=== PATIENT | female | born 1950 | race Caucasian/White ===

== ENCOUNTER 2016-11-06 09:44 | Inpatient (IN) | payer OTHER, MEDICAID ==
[~2016-11-06] VITALS: Ht 162.6 cm; Wt 84.0 kg
[~2016-11-06 09:44] MED LIST: ACET1TAB PO; ASPI-628 PO; CHOL200020 PO; HYDR-4003 PO; IBUP400T22 PO; KTC2C15 TP; METO25TA6 PO; OMEG1CAP5 PO; RANI150T13 PO; ROSU40TA PO
--- NOTE | 2016-11-06 09:51 | ED.REPORT ---
HPI-General Illness Date of Service November 06, 2016 ED Provider: Trent Fan MD Pt is a 66 y.o. female with a hx of HTN and peptic ulcer disease who presents to the ED c/o nausea, vomiting, and diarrhea. She states that she has diarrhea "every day, all day long" and cannot provide a number of episodes. Pt also reports associated upper abdominal pain/epigastric pain rated at an 8/10 that is burning in nature. She denies hematochezia and hematemesis. She states she was seen at yesterday and given Zofran which provided her no relief. Pt states that a close friend had similar sx recently. Pt also reports use of Azithromycin 2 weeks ago for a "cold". She denies a hx of Crohn's and IBD. She denies any history of C. difficile. She reports that her vomiting has resolved but she continues to be nauseated and have nonbloody diarrhea. She is here hoping to get symptom control. Nursing Notes Stated Complaint: NAUSEA/DIARRHEA Nursing Notes Reviewed: Yes Allergies: Coded Allergies: tramadol (Verified Allergy, Intermediate, hallucinations, 08/29/14) codeine (Verified Adverse Reaction, Intermediate, Sweats; N/V, 08/29/14) Uncoded Allergies: statins (Adverse Reaction, Mild, stiff joints, 08/29/14) Scheduled Aspirin (Aspirin) 81 Mg Tablet 81 MG PO DAILY Cholecalciferol (Vitamin D3) (Vitamin D3) 2,000 Unit Tablet 2,000 UNIT PO DAILY Clopidogrel (Clopidogrel) 75 Mg Tablet 75 MG PO DAILY Ketoconazole (Ketoconazole) 15 Gm Cream..g. 2 % TP DAILY Lisinopril (Lisinopril) 20 Mg Tablet 20 MG PO DAILY Loperamide (Loperamide) 2 Mg Capsule 2 MG PO Q4H Metoprolol Tartrate (Metoprolol Tartrate) 25 Mg Tablet 25 MG PO BID [place]-3 Fatty Acids (Fish Oil Concentrate) 1,000 Mg Capsule 1,000 MG PO DAILY Ranitidine (Ranitidine) 150 Mg Capsule 150 MG PO BID Rosuvastatin Calcium (Crestor) 40 Mg Tablet 40 MG PO DAILY Scheduled PRN Hydrocodone-Acetaminophen 5-325 mg (Hydrocodone-Acetaminophen 5-325 mg) 1 Each Tablet 1 EACH PO Q6 PRN PRN For Pain Ondansetron ODT (Zofran ODT) 4 Mg Tablet 4 MG PO Q4H PRN PRN For Nausea General Time Seen by MD: 09:51 Chief Complaint Diarrhea, Vomiting Arrived By: Walk-in Onset Occurred: 4 days ago Context of Onset: Recent antibiotic use Symptom Duration: Since onset Location: : Abdomen Quality: Painful Severity: Current: Pain level 8 out of 10 Past Medical History Past Medical History Peptic ulcers Reports: Hypertension Smoking History Former Smoker Review of Systems Full Review of Systems GI: Reports: Abdominal pain, Diarrhea, Nausea, Vomiting, Denies: Constipation, Hematemesis, Hematochezia Complete sys rev & neg: except as marked. Physical Exam Vital Signs Vital Signs Date Time Temp Pulse Resp B/P Pulse Ox O2 Delivery O2 Flow Rate FiO2 11/06/16 11:22 79 16 125/62 98 Room Air 11/06/16 09:52 36.9 93 16 115/72 98 Room Air Initial VS: Reviewed Extremities: Vascular intact, Neuro intact Skin: Warm, Dry, No cyanosis Neurologic: Alert, Oriented, Nonfocal Psychiatric: Mood/affect normal, Behavior normal, Normal thought content General/Constitutional: Awake, Alert, Well appearing, Well developed, Well nourished, Not toxic appearing Head / Eyes: Atraumatic, Normocephalic, PERRL, EOMI ENT: Atraumatic Mouth: Positive: Mucous membranes dry Respiratory / Chest: Atraumatic, Breath sounds NL, Breath sounds = bilat, No respiratory distress Cardiovascular: Heart rate NL, Regular rhythm, Heart sounds NL, Peripheral circulation NL Abdomen: Atraumatic, Soft, Non-tender, No guarding, No rebound, No distention Interpretation & Diagnostics Lab Results Interpretation Result Diagram: 11/06/16 1000 11/06/16 1000 Test 11/06/16 10:00 White Blood Count 8.5th/mm3 (3.8-10.1) Red Blood Count 5.33mil/mm3 (3.90-5.20) Hemoglobin 15.8g/dL (12.0-15.6) Hematocrit 46.1% (35.0-46.0) Mean Corpuscular Volume 86.5fL (81-100) Mean Corpuscular Hemoglobin 29.6pg (27.0-35.0) Mean Corpuscular Hemoglobin Concent 34.3% (32.0-37.0) Red Cell Distribution Width 15.2% (12.3-15.4) Platelet Count 238bil/L (150-400) Neutrophils (%) (Auto) 75.5% (40-74) Lymphocytes (%) (Auto) 13.8% (14-46) Monocytes (%) (Auto) 9.8% (4-12) Eosinophils (%) (Auto) 0.5% (0-5) Basophils (%) (Auto) 0.2% (0-3) Sodium Level 128mEq/L (134-144) Potassium Level 4.7mEq/L (3.5-5.2) Chloride Level 89mEq/L (97-108) Carbon Dioxide Level 13mmol/L (18-29) Blood Urea Nitrogen 87mg/dL (8-27) Creatinine 7.66mg/dL (0.57-1.00) Estimat Glomerular Filtration Rate 8mL/min (>59) Glucose Level 101mg/dL (60-99) Calcium Level 8.9mg/dL (8.5-10.1) Total Bilirubin 0.4mg/dL (0.0-1.2) Aspartate Amino Transf (AST/SGOT) 36U/L (0-50) Alanine Aminotransferase (ALT/SGPT) 27U/L (0-32) Alkaline Phosphatase 96U/L (25-165) Total Protein 8.2g/dL (6.4-8.4) Albumin 4.0g/dL (3.4-5.0) Hold Torres Top Tube Received (Received) CBC Interpretation WBC normal BMP / CMP Interpretation Na low, K+ normal, BUN elevated, Creatinine elevated Re-Eval/Medical Decision Med Decision/Clinical Course Pt is a 66 y.o. female with a hx of HTN and peptic ulcer disease who presents to the ED c/o nausea, vomiting, and diarrhea. She states that she has diarrhea "every day, all day long" and cannot provide a number of episodes. Pt also reports associated upper abdominal pain/epigastric pain rated at an 8/10 that is burning in nature. She denies hematochezia and hematemesis. She states she was seen at yesterday and given Zofran which provided her no relief. Pt states that a close friend had similar sx recently. Pt also reports use of Azithromycin 2 weeks ago for a "cold". She denies a hx of Crohn's and IBD. She denies any history of C. difficile. She reports that her vomiting has resolved but she continues to be nauseated and have nonbloody diarrhea. She is here hoping to get symptom control. Here in the emergency department the patient is afebrile with stable vital signs and examination as above. She appears quite dehydrated though her abdominal examination is benign. In the emergency department she was treated with IV fluids, Zofran for nausea and a GI cocktail. She reported feeling better though had ongoing nausea which was treated with IV Reglan. She reported dramatic improvement in her symptoms. Thereafter, she was able to tolerate PO fluids. My suspicion for C. difficile colitis is relatively low though she has recently been on antibiotics. I ordered a C. difficile PCR however she did not have any bowel movements here in the emergency department. At this time, overall presentation and history not suggestive of acute bacterial process. Inflammatory bowel disease seems inconsistent with the overall clinical picture of vomiting/diarrhea after being in contact with a friend who had similar symptoms. No findings suggestive of acute surgical intra-abdominal process. Patient has known gastritis/peptic ulcer disease and has been advised to continue to take her PPI. At this time, I do not feel that abdominal imaging studies are indicated at this moment. Laboratory studies were notable as below: CBC with no leukocytosis. New onset acute renal failure with BUN of 87 and creatinine of 7.66 up from previous near 1 Hyponatremic with sodium of 128 Potassium is within normal limits at 4.7 My initial plan was for outpatient management however this patient is surprisingly noted to be in acute renal failure with dramatic increase of her BUN and creatinine from baseline. This may all be secondary to severe dehydration and the acute rise in her renal function testing is dramatic and warrants admission for ongoing IV fluids, serial kidney function testing and likely evaluation by nephrology, especially if she does not have dramatic improvement in her renal function testing. Patient was discussed with admitting hospitalist accepted for further management. Source of Hx: Old records Time of Eval: 10:34 Re-Evaluation/Progress Note: Pt nausea has improved with IV Zofran. Time of Eval: 11:10 Re-Evaluation/Progress Note: Pt rechecked. Discussed lab results and need for admit, pt understands and agrees with plan. Consultation : Referral / Consult Name: Fernie Krueger MD Consulted With: Hospitalist Call Returned at: 12:12 [place] Worker: Accepts admit Note: Discussed pt condition. Accepts admit. Counseled Regarding: Diagnosis, Lab results, Need for follow-up, When/why to return to ED Discharge & Departure Primary Impression: Gastroenteritis Additional Impressions: Dehydration Acute renal failure Acute renal failure type: unspecified Qualified Code: N17.9 - Acute kidney failure, unspecified Nausea vomiting and diarrhea Hyponatremia Peptic ulcer disease Epigastric pain Disposition: ADMITTED TO HOSPITAL Discharge Condition All VS Reviewed: Yes Condition: Improved Patient Instructions: Gastroenteritis (ED) Additional Instructions: Thank you for seeking care at the emergency room. It is difficult for us to make definitive diagnoses in the ED but we believe that you are experiencing gastroenteritis. Our primary goal today in the ED was to evaluate you for any life-threatening conditions. Your evaluation was reassuring. You will be discharged with a prescription for apparent need for diarrhea and Zofran for nausea. You should follow-up with your primary doctor in the next week. We would like to get a stool sample to rule out C. difficile. You will be sent home with a stool collection container, please bring back to your primary care physician if you continue to have diarrhea. You should return to the ED immediately if you develop worsening symptoms, bloody vomiting/diarrhea, fevers, abdominal pain, cough, shortness of breath, chest pain, lightheadedness, weakness or any other concerning signs or symptoms. Thank you for letting us partake in your care today. Referrals: Cherie Arreola PA-C (PCP) Crit Care Except Billable Proc Time Spent: 105-134 minutes Services Performed: Patient management by me, Time spent at bedside, Reviewing test results, Reviewing imaging, Discussing patient care, Documentation in record, Time with fam/surrogate Scribe Attestation Portions of this note were transcribed by Raheem Kern. I, Dr. Fan personally performed the history, physical exam and medical decision-making; I reviewed and confirmed the accuracy of the information in the transcribed note. Signed by: Trevor Singh, 11/06/16 and 1213 copies to: Cherie Arreola PA-C, Beck O MD November 06, 2016 09:51 RAHEEM KERN November 06, 2016 09:58
[2016-11-06 09:52] VITALS: BP 115/72; PULSE 93; RESP 16; O2SAT 98
[2016-11-06] MEDS ORDERED: 0.9% Sodium Chloride 1,000 ML IV ONE ×2 (09:56→11:10)
[2016-11-06] MEDS ORDERED: Ondansetron 2 mg/mL 2 mL Inj IVPUSH ONE (10:00)
[2016-11-06] MEDS ORDERED: ONDA4TAB9 PO (10:01)
[2016-11-06] MEDS ORDERED: LOPE2CAP PO (10:01)
[2016-11-06 10:15] LABS: BASOPHILS % (AUTO) 0.2 % (0-3); EOSINOPHILS % (AUTO) 0.5 % (0-5); MONOCYTES % (AUTO) 9.8 % (4-12); Mean Corpuscular Hemoglobin 29.6 pg (27.0-35.0); Mean Corpuscular Volume 86.5 fL (81-100); NEUTROPHILS % (AUTO) 75.5 % (40-74); Platelet Count 238 bil/L (150-400)
[2016-11-06] MEDS: MetoCLOpramide 5 mg/mL 2 mL Inj IVPUSH PRN ×2 (10:40→16:18)
[2016-11-06] MEDS ORDERED: Ondansetron 2 mg/mL 2 mL Inj IVPUSH PRN ×2 (11:10→13:40)
[2016-11-06] MEDS ORDERED: Alum-Mag Hydrox-Simeth 30 mL Suspension PO PRN ×2 (11:10→13:40)
[2016-11-06 11:22] VITALS: BP 125/62; PULSE 79; RESP 16; O2SAT 98
[2016-11-06] MEDS ORDERED: CLOP75TA28 PO (11:27)
[2016-11-06] MEDS ORDERED: LISI-567 PO (11:27)
[2016-11-06] MEDS ORDERED: ASPI-973 PO (11:28)
[2016-11-06] MEDS ORDERED: CHOL200025 PO (11:28)
[2016-11-06] MEDS ORDERED: RANI150C4 PO (11:29)
[2016-11-06] MEDS ORDERED: OMEG1000 PO (11:29)
[2016-11-06 12:50] VITALS: BP 137/78; PULSE 75; RESP 16; O2SAT 99
--- NOTE | 2016-11-06 13:00 | NUR ---
Admit Rm [id number] from ED A&O pt, admitted to [facility] at 1247 via wc. Pt denies pain, N/V/D & Dizziness, c/o weakness. IV patent. VSS. to yet see pt. Admit done in ED. Pt oriented to room and facility, denies having questions. No personal items on self except for clothing-brought to ED by . Bed in low position, upper 2 rails up, call light in reach. Will continue to monitor.
[2016-11-06] MEDS ORDERED: Polyethylene Glycol (PEG) 17 Gm Powder PO PRN (13:40)
[2016-11-06] MEDS ORDERED: _Ondansetron ODT 4 mg Tablet PO PRN (13:50)
[2016-11-06 14:02] LABS: APPEARANCE,URINE CLEAR (CLEAR,HAZY); COLOR,URINE YELLOW (YELLOW)
[2016-11-06 14:03] LABS: OCCULT BLOOD,URINE TRACE (NEGATIVE); UROBILINOGEN,URINE NORMAL (NORMAL)
[2016-11-06] MEDS ORDERED: HYDROcodone-APAP 5-325 mg Tablet PO PRN (14:10)
[2016-11-06] MEDS: 0.9% Sodium Chloride 1,000 ML IV SCH ×2 (14:24→21:52)
--- NOTE | 2016-11-06 15:28 | HP ---
[address] [address] HISTORY AND PHYSICAL PATIENT: JADE MIRANDA : 1950 MR#: [id number] ADMIT: 11/06/2016 JOB ID: [id number] DATE OF SERVICE: 11/06/2016 This is a 66-year-old female presenting with intractable nausea, vomiting, and diarrhea, who is found to be in acute renal failure. She describes taking a course of Zithromax for her yearly cold infection about two weeks ago. She is not clear when she finished it. The vomiting and the diarrhea started about four days ago and seems to be infectious in origin, as she was exposed to a friend with similar symptoms. She went to the [facility] urgent care yesterday and was given Zofran which she says did not help but was told at that time that if she remained this ill she come to the emergency department and so she came in today. She has no history of kidney problems but she is a vasculopath with significant lower extremity claudication procedures for peripheral arterial disease. All members of her immediate family have coronary artery disease and peripheral arterial disease but none have had strokes. Her most recent stenting was two years ago with Dr. Brunson here [facility]. At that time, August 30, 2014, her BUN is 14, and creatinine was 1.03. She is not reporting any recent nonsteroidal anti-inflammatory drug use or other classic renal toxic agents. She does take lisinopril and aspirin 81 mg a day. There has been no change in her urinary function. She has no history of diabetes. At baseline, she is quite immobilized by her claudication despite the stents in the past. She was able to stop smoking 4-1/2 years ago. REVIEW OF SYSTEMS: Positive for bilateral lateral lower extremity claudication with ambulation, vomiting, diarrhea, and weakness. Negative for fevers, chills, sweating, abdominal pain, chest pain, shortness of breath, joint pain, rashes, seizures, headaches, depression, new allergies, sore throat. PAST MEDICAL HISTORY: Denies any history of kidney problems. 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 SOCIAL HISTORY: No smoking for 4-12 years. No alcohol. No marijuana or drugs. She lives with her . Her physician is nurse practitioner, Kathy Antunez. She is disabled/retired by her claudication symptoms. MEDICINES: 1. Plavix 75 mg a day. 2. Hydrocodone p.r.n. 3. Ranitidine 150 mg twice a day. 4. Crestor 40 mg a day. 5. Metoprolol tartrate 25 mg b.i.d. 6. Aspirin 81 mg a day. 7. Lisinopril 10 mg a day. ALLERGIES: 1. CODEINE. 2. STATINS. 3. TRAMADOL. FAMILY HISTORY: Coronary artery disease and peripheral arterial disease but without stroke in all of her immediate family members. PHYSICAL EXAM: General: Alert and oriented, no apparent distress. Vital signs: Temperature is 36.3, pulse 66, respirations 20, blood pressure 179/88. O2 sat is 96% on room air. Pupils are equally round and reactive to light and accommodation. Extraocular muscles are intact. Sclerae are pink and not icteric. Throat looks normal. No lymph nodes are palpated in the neck/supraclavicular area. There is no thyromegaly. JVD is less than 6 cm. No carotid bruits are heard. Heart: Regular rate and rhythm. No murmur. Lungs are clear to auscultation bilaterally. Abdomen is soft. Bowel sounds positive. Nontender. No organomegaly. Obese. Extremities: No ankle edema. She does have warm feet but no palpable DP pulses. Neuro: Cranial nerves 2-12 tested intact. Motor is 5/5 throughout. There is no tremor. Skin: No rash or jaundice. LABORATORY TESTING: White count 8.5, hemoglobin 15.8, platelets 238. Sodium 128, potassium 4.7, chloride 89, CO2 is 13. BUN 87, creatinine 7.66. Glucose 101. ASSESSMENT AND PLAN: 1. Acute renal failure with several possible causes including occult NSAID use, recent antibiotic exposure, recent dehydration from vomiting and diarrhea. Nephrology has been consulted. The patient is receiving IV fluids at 150 mL an hour of normal saline. Renal ultrasound and urinary eosinophils have been ordered. Labs will be followed closely. 2. Gastroenteritis symptoms. This is being supported with antiemetics and IV fluids. 3. History of peptic ulcer disease. Continue Pepcid. 4. Peripheral arterial disease. Continue Plavix and aspirin. Unfortunately she is intolerant of statins. 5. Hypertension. Holding lisinopril in the context of acute renal failure and establishing blood pressure control per Nephrology consultation to follow. The plan is discussed and explained to the patient. CC: SHERYL Gonzales. Sebas Krueger MD [facility]
[2016-11-06] MEDS: Omega-3 Fatty Acids 1,000 mg Capsule PO SCH (16:16)
[2016-11-06] MEDS: Heparin 5,000 Unit/mL Inj SUBQ SCH (16:19)
[2016-11-06 17:42] VITALS: BP 143/80; PULSE 79; RESP 18; O2SAT 98
--- NOTE | 2016-11-06 18:59 | DRSVH ---
CORRECTED ACCESSION/PLACER NUMBER ON 11/11/16 PROCEDURE: US RENAL SONOGRAM INDICATIONS: Acute Renal Failure TECHNIQUE: Real-time scanning was performed of the kidneys and bladder, with image documentation. COMPARISON: None. FINDINGS: Kidneys: Kidneys are normal in size. Right kidney measures 11.1 cm long; left kidney measures 10.9 cm long. Right renal cortical thickness is 1.0 cm; left renal cortical thickness is 1.1 cm. Renal c ortical echotexture is normal. No hydronephrosis or nephrolithiasis. No suspicious solid mass lesio ns. Bladder: Pre-void bladder volume is 20 mL. Pre-void images demonstrate no intraluminal masses or st ones. On pre-void images, no ureteral jets are noted with color Doppler interrogation. (Of note, ur eteral jets may not be detectable in up to 25% of cases due to insufficient differences in specific g ravity between ureteral and bladder urine). Miscellaneous: No free pelvic fluid. IMPRESSION: No hydronephrosis. Dictated by: Jolie Sharma M.D. on 11/06/2016 at 18:56 Approved by: Jolie Sharma M.D. on 11/06/2016 at 18:57
--- NOTE | 2016-11-06 21:02 | NUR ---
Activity Pt alert and oriented x4, cooperative and pleasant. Family visiting for the evening, no complaints of nausea or vomiting, continued diarrhea. Says she feels better than yesterday. No complaints of pain or discomfort, will continue to monitor.
[2016-11-06 21:22] VITALS: BP 129/77; PULSE 71; RESP 18; O2SAT 92
[2016-11-07] MEDS: Heparin 5,000 Unit/mL Inj SUBQ SCH ×3 (00:33→16:28)
[2016-11-07] MEDS: 0.9% Sodium Chloride 1,000 ML IV SCH ×3 (04:57→19:25)
--- NOTE | 2016-11-07 05:37 | NUR ---
Uneventful night Patient has remained alert and oriented, steady gait and independent in room. Vital signs stable. One loose bowel movement- stool sample sent. Enteric precautions for pending stool samples. Denies pain and nausea. IV fluids infusing per orders. Call light within reach, intentional rounding in place.
[2016-11-07 06:09] VITALS: BP 136/74; PULSE 68; RESP 18; O2SAT 96
[2016-11-07] MEDS: Omega-3 Fatty Acids 1,000 mg Capsule PO SCH (08:44)
--- NOTE | 2016-11-07 08:54 | NUR ---
Social Work: Screening Data: Pt is a 66 y/o female admitted for ARF, N/V/D. Pt's PCP is dr Arreola, pt's insurance is [facility] Blind/disabled. EMR reviewed. No d/c planning needs anticipated at this time. PHYSICAL THERAPY AIDES TEACHER will continue to follow for possible d/c needs. Assessment: Pt who is independent at baseline. Plan: Pt will d/c home via POV when medically stale. No d/c planning needs anticipated at this time. PHYSICAL THERAPY AIDES TEACHER will continue to follow for possible d/c needs. TAMMY Renner
[2016-11-07] MEDS ORDERED: ROSU10TA24 PO (10:02)
--- NOTE | 2016-11-07 10:05 | NUR ---
Carolyn Pt. reported home med Crestor 10 mg HS (Not 40 mg due to muscular pain). Primary nurse, Danyelle Tineo RN will notify attending doctor about the discrepancy.
[2016-11-07 10:08] VITALS: BP 135/73; PULSE 71; RESP 16; O2SAT 95
--- NOTE | 2016-11-07 13:10 | PCM.PNMED ---
Subjective Date of Service November 07, 2016 Subjective She is seen today in her room to follow-up the rotavirus gastroenteritis and the acute renal failure. The renal ultrasound report is still pending but the initial statement by the technologist was that it was apparently normal. The BUN and creatinine have improved dramatically overnight with IV fluids. I have spoken with nephrology, Dr. Latham who saw her today. She says she feels a lot , a lot better. Exam Vital Signs Vital Sign - Last Date Time Temp Pulse Resp B/P Pulse Ox O2 Delivery O2 Flow Rate FiO2 11/07/16 10:08 36.6 71 16 135/73 95 Room Air Intake and Output 11/06/16 11/06/16 11/07/16 Cumulative From/Thru 15:00 23:00 07:00 11/06/16 09:52 - 11/07/16 06:25 Intake Total 2000 ml 680 ml 1892 ml 4572 ml Output Total 570 ml 1600 ml 2170 ml Balance 2000 ml 110 ml 292 ml 2402 ml Intake Oral 300 ml 300 ml 600 ml IV Total 2000 ml 380 ml 1592 ml 3972 ml Output Urine Total 570 ml 1600 ml 2170 ml # Bowel Movements 1 1 Exam Heart is regular rate and rhythm without murmur Lungs are clear to auscultation bilaterally Extremities have no ankle edema Abdomen is soft, nontender, no organomegaly, bowel sounds are heard. Lab and Diagnostics Result Diagram: 11/06/16 1000 11/07/16 0720 Assessment & Plan Acute Renal Failure - Secondary to Rotavirus Gastroenteritis Dehydration - Resolving with IVF replacement - Seen by Nephrology - US of kidneys done and report is pending, although presumably normal - Dr. Latham suspects CKD due to PAD/HTN is also present. - Baseline Creatinine 1 in 2014 Rotavirus GE/Dehydration - Continue IVF support - Diarrhea and Vomiting resolved PAD - Continue Plavix and Aspirin HTN - Continue home medicines of Metoprolol. - Hold Lisinopril until renal function is normal. HLD - Continue Crestor at 10 mg Disposition: Home tomorrow if renal function normalizes as expected. Sebas Krueger MD Pain Evaluation: Adequate Pain Control GI Prophylaxis: H2 nura VTE Mechanical Devices: Venous Foot Pump Resuscitation Status: CPR: Attempt Resuscitation Fernie Krueger MD November 07, 2016 10:37
[2016-11-07 13:38] VITALS: BP 154/75; PULSE 70; RESP 18; O2SAT 96
--- NOTE | 2016-11-07 13:58 | NUR ---
Anxious to d/c Pt states to be feeling much better today. Denies pain. is anxious to go home. Tolerating IVF well.
--- NOTE | 2016-11-07 16:27 | CONS ---
[address] [address] CONSULTATION REPORT PATIENT: JADE MIRANDA : 1950 MR#: [id number] ADMIT: 11/06/2016 JOB ID: [id number] DATE OF SERVICE: HISTORY: The patient is a very pleasant, 66-year-old, white female, who was admitted to [facility] for severe dehydration, diarrhea, and acute kidney injury. Renal consultation is being sought for further evaluation of her acute kidney injury. The patient states that several weeks ago, she started having symptoms of an upper respiratory tract infection including nasal congestion, cough productive of mucopurulent sputum, sore throat, and general malaise. She was seen by her family physician and was given a Z-Toby which improved her symptomatology. About a week following the completion of the medication, she began to develop nausea, vomiting, and diarrhea. This has persisted for five days up until time of admission. She also states she has been quite weak, unsteady on her feet, and has had some anorexia. She was seen in the emergency department, and at that time yesterday morning her BUN and creatinine were 87 and 7.66. She was subsequently admitted and was started on IV fluids. Also, at time of admission, she had a systolic blood pressure of about 90. This is both her renal function and her blood pressure has improved with IV hydration. She denies a history of any prior renal problems. Reviewing previous records from 2014, at that time her creatinine was 1.0. She denies a history of any prior renal problems. There is no history of any prior hematuria, proteinuria, recurrent urinary tract infections, renal lithiasis, frequent use of nonsteroidal anti-inflammatories, difficulty with urination, prior history of diabetes, hepatitis, rheumatoid arthritis, or lupus. She does have approximately a nine-year history of well-controlled hypertension on medications. There is also a history of peripheral vascular disease and she has a history of intermittent claudication from this. Otherwise, she denies any severe headache, visual problems, cough, wheezing, chest pain, shortness of breath, lower extremity edema, significant change in weight, fever, or chills. She denies any rash, hematemesis, melena, or hematochezia. PAST MEDICAL HISTORY: Significant for hypertension and intermittent claudication. She denies a history of any prior stroke, seizure, asthma, emphysema, tuberculosis, coronary artery disease, congestive heart failure, peptic ulcer disease, cancer, or thyroid illness. PAST SURGICAL HISTORY: Remarkable for a balloon angioplasty to her femoral vessels, which was not successful. ALLERGIES: She is allergic to: 1. CODEINE. 2. STATINS. 3. TRAMADOL. SOCIAL HISTORY: She has an extensive history of tobacco use but states that she quit smoking about five years ago. There is no history of any alcohol use or illicit drug use. She is normally active in her activities of daily living which she normally performs without problems or restriction. MEDICATIONS: At time of admission include Plavix, hydrocodone, ranitidine, Crestor, metoprolol, aspirin, and lisinopril. FAMILY HISTORY: Remarkable for severe peripheral vascular disease. REVIEW OF SYSTEMS: As detailed above. Otherwise is noncontributory. PHYSICAL EXAMINATION: Revealed a mildly obese, 66-year-old, white female, who was alert and oriented x3, in no distress at time of my evaluation. Her blood pressure is 135/73, with a pulse rate of 70. HEENT: Examination is remarkable for mildly pale sclerae. Cornea, conjunctiva, pupils, and extraocular muscles were unremarkable. Mucous membranes were somewhat dry. Neck is supple without adenopathy, thyromegaly, or jugular venous distention. Lungs are clear to auscultation. Heart is regular and rhythmical with a soft systolic murmur. Abdomen is soft, without any tenderness, rebound, guarding, masses or hepatosplenomegaly. Extremities did not show any evidence of any clubbing, cyanosis, or edema. There are sayw-wqe-gegw nails noted. Skin turgor is diminished and there is no evidence of any rashes. LABORATORY EXAMINATION: This morning, her sodium is 139, potassium 4.5, chloride 109, bicarbonate 14. BUN and creatinine were 56 and 2.87, with a calcium of 7.6. Liver function studies are unremarkable. Urinalysis on admission showed a specific gravity 1.010. PH was five. Tests for occult blood were trace, otherwise were unremarkable. Urine free eosinophils was also negative. Her white count was 8.5, hemoglobin 15.8, hematocrit 46.1. Red cell indices, platelet count and differential were normal. IMPRESSION: 1. Severe dehydration from vomiting and diarrhea. 2. Acute kidney injury secondary to number one. 3. Metabolic acidosis. 4. Baseline chronic kidney disease at an unknown stage. RECOMMENDATION: I would like to obtain a renal ultrasound along with continuing her IV hydration and her serial lab exam. Once again, I would like to thank you for allowing me to participate in the care of this most pleasant and interesting patient. I will be following her closely with you.
[2016-11-07 20:00] VITALS: BP 134/66; PULSE 73; RESP 18; O2SAT 96
[2016-11-08] MEDS: Heparin 5,000 Unit/mL Inj SUBQ SCH ×2 (00:33→07:56)
[2016-11-08] MEDS: 0.9% Sodium Chloride 1,000 ML IV SCH ×2 (02:22→09:09)
[2016-11-08 05:11] VITALS: BP 154/76; PULSE 71; RESP 18; O2SAT 97
--- NOTE | 2016-11-08 05:12 | NUR ---
Uneventful night PT slept well all night no complaints of pain, SOB or diarrhea, spent the night on the pull out bed.
[2016-11-08] MEDS: Omega-3 Fatty Acids 1,000 mg Capsule PO SCH (07:55)
--- NOTE | 2016-11-08 10:54 | PCM.PNNEPH ---
Subjective Date of Service November 08, 2016 Subjective Patient continues to do well. Her BUN and creatinine are back to near baseline and she is tolerating her diet. She denies any headache, chest pain, shortness of breath, vomiting or diarrhea. Her blood pressures average in the 1:30 to 150 range. Over the last 24 hour she has had 5040 5 AM and 2650 out with the thousand in urine output already today. Sodium is 144, potassium 4.5, chloride 114, bicarbonate 19, BUN and creatinine were 21.28. Exam Vital Signs Vital Sign - Last Date Time Temp Pulse Resp B/P Pulse Ox O2 Delivery O2 Flow Rate FiO2 11/08/16 05:11 36.7 71 18 154/76 97 Room Air Intake and Output 11/07/16 11/07/16 11/08/16 Cumulative From/Thru 15:00 23:00 07:00 11/06/16 09:52 - 11/08/16 06:26 Intake Total 3153 ml 2180 ml 9905 ml Output Total 1050 ml 1000 ml 4220 ml Balance 2103 ml 1180 ml 5685 ml Intake Oral 1200 ml 550 ml 2350 ml IV Total 1953 ml 1630 ml 7555 ml Output Urine Total 1050 ml 1000 ml 4220 ml # Bowel Movements 0 1 Exam Neck is supple without adenopathy, thyromegaly, jugular venous distention. Lungs were clear to auscultation. Heart was regular with a soft systolic murmur. Abdomen is soft without any tenderness or rebound guarding masses or hepatosplenomegaly. She is actually evidence of any clubbing, cyanosis, or edema. Skin turgor is good. Lab and Diagnostics Result Diagram: 11/06/16 1000 11/08/16 0605 Plan Impression Impression #1 acute kidney injury which is resolving secondary to all vomiting and diarrhea #2 dehydration which is resolved #3 hypertension with hypertensive heart disease and hypertensive nephrosclerosis. Recommendations #1 I would recommend adding labetalol 100 mg twice a day to her current blood pressure regime and my point she can be discharged today. I would like to see her in the office in about a month. Savage Latham DO November 08, 2016 10:54
--- NOTE | 2016-11-08 11:22 | PCM.DIMED ---
Discharge Instructions Date of Service November 08, 2016 Dates of Hospitalization November 06, 2016 at 11:29 Discharge Diagnosis Discharge Diagnosis Rotavirus gastroenteritis Acute renal failure due to volume depletion Diet Discharge Diet: Heart Healthy Activity Discharge Activity: No restrictions Patient Instructions Follow-up with PCP in: 1 week Provider: Savage Latham DO Follow-up in: 4 weeks Karrie Pandya MD November 08, 2016 11:22
--- NOTE | 2016-11-08 11:28 | NUR ---
Social Work-discharge: Data:EMR Reviewed. Pt is on day 2 of hospitalization for ARF per H&P. Pt is medically stable for discharge. Per RN notes, pt has been up independent in her room. Pt's family to provide transport home today. No discharge needs identified. All updated and agreeable to plan. Assessment:Pt who is independent at baseline. Plan:Pt to discharge home today via POV. No discharge needs identified. All updated and agreeable to plan. TAMMY Jones
[2016-11-08] MEDS ORDERED: LISI-567 PO (11:33)
--- NOTE | 2016-11-08 11:37 | PCM.DC.MED ---
Discharge Summary Date of Service November 08, 2016 Dates of Hospitalization Date of Hospital Admission November 06, 2016 at 11:29 Date of Discharge: November 08, 2016 Providers: Admitting Physician: Fernie Krueger MD Primary Care Physician: Cherie Arreola PA-C Attending Physician: Fernie Krueger MD Diagnosis at Time of Discharge Diagnosis at Time of Discharge Rotavirus gastroenteritis Acute renal failure due to volume depletion Hospital Course Acute Renal Failure - Secondary to Rotavirus Gastroenteritis Dehydration - Resolved quickly with IVF replacement - Seen by Nephrology - US of kidneys done and report is pending, although presumably normal - Dr. Latham suspects CKD due to PAD/HTN is also present. - Baseline Creatinine 1.03 in 2014, down to 1.28 at the time of discharge Rotavirus GE/Dehydration - Diarrhea and Vomiting resolved PAD - Continue Plavix and Aspirin HTN - Continue home medicines of Metoprolol. Dr. Latham's note mentioned beginning labetalol but discussed home med of metoprolol with him and that he advised she should just continue the metoprolol - Held Lisinopril until renal function normalized, okay to resume at discharge per Dr. Latham HLD - Continue Crestor at 10 mg Disposition: Home Exam Vital Signs (Last) Date Time Temp Pulse Resp B/P Pulse Ox O2 Delivery O2 Flow Rate FiO2 11/08/16 05:11 36.7 71 18 154/76 97 Room Air Exam General: Alert and oriented, no acute distress, feels back to usual self and anxious to be discharged home Heart: Regular Lungs: Clear Abdomen: Soft, non-tender Extremities: No pedal edema Test 11/06/16 10:00 11/06/16 13:31 11/08/16 06:05 White Blood Count 8.5th/mm3 (3.8-10.1) Red Blood Count 5.33mil/mm3 (3.90-5.20) Hemoglobin 15.8g/dL (12.0-15.6) Hematocrit 46.1% (35.0-46.0) Mean Corpuscular Volume 86.5fL (81-100) Mean Corpuscular Hemoglobin 29.6pg (27.0-35.0) Mean Corpuscular Hemoglobin Concent 34.3% (32.0-37.0) Red Cell Distribution Width 15.2% (12.3-15.4) Platelet Count 238bil/L (150-400) Neutrophils (%) (Auto) 75.5% (40-74) Lymphocytes (%) (Auto) 13.8% (14-46) Monocytes (%) (Auto) 9.8% (4-12) Eosinophils (%) (Auto) 0.5% (0-5) Basophils (%) (Auto) 0.2% (0-3) Total Bilirubin 0.4mg/dL (0.0-1.2) Aspartate Amino Transf (AST/SGOT) 36U/L (0-50) Alanine Aminotransferase (ALT/SGPT) 27U/L (0-32) Alkaline Phosphatase 96U/L (25-165) Total Protein 8.2g/dL (6.4-8.4) Albumin 4.0g/dL (3.4-5.0) Hold Torres Top Tube Received (Received) Urine Color Yellow (YELLOW) Urine Appearance Clear (CLEAR,HAZY) Urine pH 5.0 (5.0-8.0) Urine Specific [place] 1.010 (1.003-1.035) Urine Protein Tracemg/dL (NEG,TRACE) Urine Glucose (UA) Negativemg/dL (NEGATIVE) Urine Ketones Negativemg/dL (NEGATIVE) Urine Occult Blood Trace (NEGATIVE) Urine Nitrite Negative (NEGATIVE) Urine Bilirubin Negative (NEGATIVE) Urine Urobilinogen Normalmg/dL (NORMAL) Urine Leukocyte Esterase Negative (NEGATIVE) Urine RBC 0-2/hpf (0-2) Urine WBC 0-5/hpf (0-5) Urine Epithelial Cells Moderate/hpf (NONE-MOD) Urine Crystals Amorphous urates (NONE Urine Bacteria None/hpf (NONE-FEW) Urine Hyaline Casts None/lpf (NONE) Urine Granular Casts None seen (NONE SEEN) Urine Waxy Casts None seen (NONE SEEN) Urine Red Blood Cell Casts None seen (NONE SEEN) Urine White Blood Cell Casts None seen (NONE SEEN) Urine Mucus None seen (None Seen) Urine Trichomonas None seen (NONE SEEN) Urine Yeast None (NONE SEEN) Urinalysis Comment None Urine Culture Reflexed Not indicated Sodium Level 144mEq/L (134-144) Potassium Level 4.5mEq/L (3.5-5.2) Chloride Level 114mEq/L (97-108) Carbon Dioxide Level 19mmol/L (18-29) Blood Urea Nitrogen 28mg/dL (8-27) Creatinine 1.28mg/dL (0.57-1.00) Estimat Glomerular Filtration Rate 60mL/min (>59) Glucose Level 91mg/dL (60-99) Calcium Level 8.0mg/dL (8.5-10.1) Discharge Medications Discharge Medications Aspirin (Aspirin) 81 Mg Tablet 81 MG PO DAILY (Reported) Cholecalciferol (Vitamin D3) (Vitamin D3) 2,000 Unit Tablet 2,000 UNIT PO DAILY (Reported) Clopidogrel (Clopidogrel) 75 Mg Tablet 75 MG PO DAILY (Reported) Lisinopril (Lisinopril) 20 Mg Tablet 10 MG PO DAILY Prescribed by: ROBERT GRIMES MD Metoprolol Tartrate (Metoprolol Tartrate) 25 Mg Tablet 25 MG PO BID (Reported) [place]-3 Fatty Acids (Fish Oil Concentrate) 1,000 Mg Capsule 1,000 MG PO DAILY ( Reported) Ranitidine (Ranitidine) 150 Mg Capsule 150 MG PO BID (Reported) Rosuvastatin Calcium (Rosuvastatin Calcium) 10 Mg Tablet 10 MG PO HS (Reported) As needed Hydrocodone-Acetaminophen 5-325 mg (Hydrocodone-Acetaminophen 5-325 mg) 1 Each Tablet 1 TABLET PO Q6 PRN PRN For Pain (Reported) Followup Plan Discharge Diet: Heart Healthy Discharge Activity: No restrictions Follow-up with PCP in: 1 week Provider: Savage Latham DO Follow-up in: 4 weeks Robert Grimes MD November 08, 2016 11:37
--- NOTE | 2016-11-08 12:50 | NUR ---
Discharge Pt discharged at this time. All belongings gathered and returned to pt. IV D/Cd intact. No new prescriptions given, VSS. No complains of N/V or diarrhea. Discharge packet printed and reviewed with pt. Pt declined offer of wheelchair, steady strong gait. [place] [facility] [place], to be transported home in private vehicle driven by spouse.
== END 2016-11-08 12:49 | disposition home or self-care (01) | DRG 460 ==
LOC: SED 09:44 → MPC 11:29
PROVIDERS: ADMIT Family Medicine; ATTEND Family Medicine
DX: N17.9 Acute kidney failure, unspecified (principal); A08.0 Rotaviral enteritis; I10 Essential (primary) hypertension; E87.1 Hypo-osmolality and hyponatremia; E86.0 Dehydration; I73.9 Peripheral vascular disease, unspecified; E78.5 Hyperlipidemia, unspecified; Z87.891 Personal history of nicotine dependence